=== PATIENT | male | born 1960 ===

== ENCOUNTER 2024-11-13 07:45 | Inpatient (IN) | payer OTHER ==
[~2024-11-13] VITALS: Ht 182.9 cm; Wt 83.9 kg
[2024-11-13 09:45] LABS: BASO % 0.8 % (0.1-1.2); EOS # 0.04 (0.04-0.54); EOS % 0.8 % (0.7-7.0); HEMATOCRIT 44.6 % (40.1-51.0); HEMOGLOBIN 15.3 g/dL (13.7-17.5); LYMPH # 1.78 (1.18-3.74); LYMPH % 37.2 % (19.3-53.1); MEAN CORPUSCULAR HEMOGLOBIN 29.7 pg (25.6-32.2); MONO # 0.57 (0.24-0.82); MONO % 11.9 % (4.7-12.5); NEUT # 2.33 (1.56-6.13); NEUT % 48.9 % (34.0-71.1); PLATELET COUNT 180 K/uL (163-369); RED BLOOD COUNT 5.15 M/uL (4.63-6.08); RED CELL DISTRIBUTION WIDTH 13.1 % (11.6-14.4)
[2024-11-13 09:46] LABS: COVID-19 AG NEGATIVE (NEGATIVE)
[2024-11-13] MEDS ORDERED: ECOTRIN81 MG PO (09:54)
[2024-11-13] MEDS ORDERED: PEPCID AC20 MG (09:54)
[2024-11-13] MEDS ORDERED: EZALLOR SPRINKL10 MG PO (09:54)
[2024-11-13] MEDS ORDERED: OLMESARTAN MEDO20 MG PO (09:57)
[2024-11-13] MEDS ORDERED: BISOPROLOL FUMAR5 MG (09:57)
[2024-11-13 10:02] VITALS: BP 109/73
[2024-11-13 10:04] LABS: RH POSITIVE
[2024-11-13 10:07] LABS: CALCIUM 9.3 mg/dL (8.5-10.1); CREATININE SERUM 0.92 mg/dL (0.70-1.30); GFR 82.31; POTASSIUM 4.52 mEq/L (3.5-5.1)
[2024-11-13 10:22] LABS: INR 0.98; PARTIAL THROMBOPLASTIN TIME 25.2 SECONDS (22.0-34.0); PROTHROMBIN TIME 10.7 SECONDS (9.0-11.5)
[2024-11-13 11:22] LABS: PH,URINE 5.5 (5.0-8.0); URINE APPEARANCE Clear; URINE BILIRRUBIN Negative (NEGATIVE); URINE BLOOD Negative; URINE COLOR Yellow; URINE GLUCOSE Negative (NEGATIVE); URINE KETONE Negative (NEGATIVE); URINE LEUKOCYTE Negative; URINE NITRATE Negative; URINE PROTEIN Negative (NEGATIVE); URINE UROBILINOGEN 0.2 E.U./dl
[2024-11-13 11:34] LABS: URINE BACTERIA 3.6 uL (0.0-1933); URINE CAST 0.14 uL (0.0-1.40); URINE EPITHELIAL CELLS 0.4 uL (0.0-38.8); URINE RBC 0.7 uL (0.0-20.8); URINE WBC 0.6 uL (0.0-23.2)
[2024-11-19] MEDS ORDERED: ENOXAPARIN SODIUM 40 MG/0.4 ML SYRINGE SUBCUTANEO ONE (07:03)
[2024-11-19] MEDS ORDERED: HEMOSTATIC MATRIX 1 KIT KIT TOP ONE (07:03)
[2024-11-19] MEDS ORDERED: BUPIVACAINE HCL/MPF 0.5% 30ML VIAL ONE (07:04)
[2024-11-19] MEDS ORDERED: CEFAZOLIN SODIUM 1,000 MG VIAL ONE (07:04)
[2024-11-19] MEDS ORDERED: SURGIFLO APPLICATOR 1 EACH APPL TOP ONE (07:11)
[2024-11-19] MEDS ORDERED: SUGAMMADEX SODIUM 200 MG/2 ML VIAL IV ONE (08:25)
[2024-11-19] MEDS ORDERED: MORPHINE SULFATE 4 MG/ML CARTRIDGE IV PRN (12:15)
[2024-11-19] MEDS ORDERED: ONDANSETRON HCL 2 MG/ML VIAL IV PRN (12:15)
[2024-11-19] MEDS ORDERED: OxyCODONE HCL 5 MG TABLET (ROXICODONE) PO PRN (12:15)
[2024-11-19] MEDS ORDERED: RINGERS SOLUTION,LACTATED 1,000 ML IV SCH (12:15)
[2024-11-19] MEDS ORDERED: ENALAPRILAT DIHYDRATE 1.25 MG/ML VIAL IV PRN (12:15)
[2024-11-19] MEDS ORDERED: ACETAMINOPHEN 325 MG TABLET PO PRN (12:30)
[2024-11-19] MEDS ORDERED: MORPHINE SULFATE 4 MG/ML VIAL IV ONE ×2 (13:10→14:45)
[2024-11-19] MEDS ORDERED: GABAPENTIN 300 MG CAPSULE PO SCH (17:00)
[2024-11-19] MEDS ORDERED: ROSUVASTATIN CALCIUM 10 MG TABLET PO SCH (17:00)
[2024-11-19] MEDS ORDERED: POLYETHYLENE GLYCOL 3350 17 GM BLIST.PACK PO SCH (17:00)
[2024-11-19 17:20] VITALS: BP 109/67; O2SAT 96
[2024-11-19] MEDS ORDERED: CEFAZOLIN SODIUM 1,000 MG VIAL IV SCH (21:00)
[2024-11-19] MEDS ORDERED: FAMOTIDINE/PF 20 MG/2 ML VIAL IV SCH (21:00)
[2024-11-20 01:23] VITALS: BP 107/68; O2SAT 98
[2024-11-20 08:00] VITALS: BP 107/68; O2SAT 97
[2024-11-20 08:24] LABS: BASO % 0.3 % (0.1-1.2); HEMATOCRIT 41.6 % (40.1-51.0); HEMOGLOBIN 14.3 g/dL (13.7-17.5); LYMPH # 1.36 (1.18-3.74); LYMPH % 14.9 % (19.3-53.1); MEAN CORPUSCULAR HEMOGLOBIN 30.2 pg (25.6-32.2); MONO # 1.05 (0.24-0.82); MONO % 11.5 % (4.7-12.5); NEUT # 6.68 (1.56-6.13); NEUT % 73.1 % (34.0-71.1); PLATELET COUNT 169 K/uL (163-369); RED BLOOD COUNT 4.74 M/uL (4.63-6.08); RED CELL DISTRIBUTION WIDTH 13.2 % (11.6-14.4)
[2024-11-20] MEDS ORDERED: OLMESARTAN 20 MG PO SCH (09:00)
[2024-11-20] MEDS ORDERED: ENOXAPARIN SODIUM 40 MG/0.4 ML SYRINGE SUBCUTANEO SCH (09:00)
[2024-11-20 09:21] LABS: ALBUMIN 3.1 gm/dL (3.4-5.0); CALCIUM 8.6 mg/dL (8.5-10.1); GFR 74.76; PHOSPHOROUS 3.5 mg/dL (2.5-4.9); POTASSIUM 4.76 mEq/L (3.5-5.1)
== END 2024-11-20 16:13 | disposition home or self-care (01) | DRG 708 ==
LOC: O/R 11-19 05:23 → SURH 11-19 07:45
PROVIDERS: ADMIT Urology; ATTEND Urology
PROC: 07BC4ZZ Excision of Pelvis Lymphatic, Percutaneous Endoscopic Approach (ICD-10-PCS; 2024-11-19)
PROC: 8E0W4CZ Robotic Assisted Procedure of Trunk Region, Percutaneous Endoscopic Approach (ICD-10-PCS; 2024-11-19)
PROC: 0VT04ZZ Resection of Prostate, Percutaneous Endoscopic Approach (ICD-10-PCS; principal; 2024-11-19 12:15)
DX: C61 Malignant neoplasm of prostate (principal)
CPT/HCPCS: 55866; 38571; S2900